=== PATIENT | female | born 1995 | race Two or more races ===

== ENCOUNTER 2024-01-21 16:27 | Emergency (ER) | payer OTHER ==
[~2024-01-21] VITALS: Ht 157.5 cm; Wt 77.0 kg
[2024-01-21] MEDS ORDERED: HALOPERIDOL LACTATE 5 MG/ML INJ VIAL IM ONE (20:30)
[2024-01-21] MEDS ORDERED: LORazepam 2MG/ML-1ML VIAL IM ONE (20:30)
[2024-01-21 21:20] VITALS: BP 125/79; PULSE 82; RESP 13; TEMP 99; O2SAT 100
== END 2024-01-21 21:37 | disposition home or self-care (01) ==
LOC: ER 16:27
DX: O9A.211 Injury, poisoning and certain other consequences of external causes complicating pregnancy, first trimester (principal); R10.2 Pelvic and perineal pain; S40.022A Contusion of left upper arm, initial encounter; S40.021A Contusion of right upper arm, initial encounter; H92.02 Otalgia, left ear; Z3A.01 Less than 8 weeks gestation of pregnancy; Y04.2XXA Assault by strike against or bumped into by another person, initial encounter; Y93.89 Activity, other specified; Y92.89 Other specified places as the place of occurrence of the external cause; Y99.8 Other external cause status
CPT/HCPCS: 36415; 70450; 76801; 76817; 81025; 84702